=== PATIENT | female | born 1950 | race African-American/Black ===

== ENCOUNTER → 2019-04-06 | Outpatient (CLI) | payer MEDICARE | LOC: COL.RAD 08:09 | DX: R14.1 Gas pain (principal); R06.02 Shortness of breath | CPT/HCPCS: A9541 ==

== ENCOUNTER → 2019-06-17 | Outpatient (CLI) | payer MEDICARE | LOC: COL.PUL 05-19 13:00 | DX: R06.02 Shortness of breath (principal) ==

== ENCOUNTER → 2019-08-09 | Outpatient (CLI) | payer MEDICARE | LOC: COL.PUL 09:53 | DX: R06.02 Shortness of breath (principal) | CPT/HCPCS: J7674 ==

== ENCOUNTER → 2022-04-11 | Day surgery (SDC) | payer MEDICARE ==
[~2022-04-11] VITALS: Ht 157.5 cm; Wt 79.4 kg
[~2022-04-11] MED LIST: HCTZ 25MG TAB25 MG PO; NORCO 325 MG-7.1 TAB PO; PROAIR HFA0.09 MG/AC IH; PROTONIX 40MG T40 MG PO; TENORMIN 5050 MG/TAB PO
[2022-04-11 09:40] VITALS: BP 141/70; PULSE 55; TEMP 97.7
[2022-04-11 10:52] VITALS: BP 126/63; PULSE 51
--- NOTE | 2022-04-11 10:52 | NUR ---
Patient returns to room 6 per cart accompanied by Ti LIANG and Carlos GOOD. Patient is awake and alert. Temp 97.9 and room air sats 100%. Dressing on the right hand clean and dry. Siderails up x2 and call light in reach. Taking sips of water. Denies pain or nausea.
[2022-04-11 11:07] VITALS: BP 132/57; PULSE 58
--- NOTE | 2022-04-11 11:07 | NUR ---
Continues to rest without complaints of pain or nausea. Right hand kept elevated. Fingers warm and pink.
[2022-04-11 11:22] VITALS: BP 141/67; PULSE 49
--- NOTE | 2022-04-11 11:22 | NUR ---
Taking ice water and eating pudding.
[2022-04-11 11:37] VITALS: BP 156/74; PULSE 51
--- NOTE | 2022-04-11 11:37 | NUR ---
Denies pain or nausea. Left hand dressing clean and dry.
--- NOTE | 2022-04-11 11:40 | NUR ---
IV to INT and ambulates to bathroom. Tolerates activity well.
--- NOTE | 2022-04-11 12:00 | NUR ---
Patient dresses self. Continues to deny pain or nausea.
--- NOTE | 2022-04-11 12:21 | NUR ---
Patient calls family for ride home.
--- NOTE | 2022-04-11 12:25 | NUR ---
Patient dismissal instructions given and voices understanding of home cares and follow up appointment. Provided office number for any questions or concerns.
--- NOTE | 2022-04-11 12:29 | NUR ---
Patient discharged to home driven by family member per private vehicle and taken to car per wheelchair and assisted in vehicle with instructions in hand.
== END ==
LOC: SDCO 09:01
DX: M65.331 Trigger finger, right middle finger (principal)
CPT/HCPCS: J0690; J2405; J2704; J7120